=== PATIENT | female | born 1990 | race Two or more races ===

== ENCOUNTER 2021-12-13 10:19 | Outpatient (CLI) | payer OTHER | END 2021-12-13 10:26 | disposition home or self-care (01) | LOC: SONOGRAMA 10:19 | PROVIDERS: ATTEND Pathology Anatomic Pathology & Clinical Pathology | DX: E04.2 Nontoxic multinodular goiter (principal) ==

== ENCOUNTER → 2023-01-16 | Day surgery (SDC) | payer OTHER ==
[~2023-01-16] VITALS: Ht 157.5 cm; Wt 63.5 kg
== END | disposition home or self-care (01) ==
LOC: ER 01-15 14:35 → CIR.AMB 08:32 → O/R 08:32 → ER 08:32 → SEC-K 08:32 → EDSTATUS 13:45 → SEC-K 14:42 → O/R 14:42
PROVIDERS: ATTEND Emergency Medicine
DX: O02.1 Missed abortion (principal); O72.2 Delayed and secondary postpartum hemorrhage; Z20.822 Contact with and (suspected) exposure to COVID-19

== ENCOUNTER 2023-03-31 00:21 | Emergency (ER) | payer OTHER ==
[~2023-03-31] VITALS: Ht 154.9 cm; Wt 68.9 kg
[2023-03-31] MEDS ORDERED: PROMETRIUM200 MG PO (00:59)
[2023-03-31] MEDS ORDERED: LEVO-T25 MCG PO (00:59)
[2023-03-31] MEDS ORDERED: PRENATA CHEWAB1 EACH PO (01:00)
== END 2023-03-31 05:30 | disposition home or self-care (01) ==
LOC: ER 00:21
DX: O26.891 Other specified pregnancy related conditions, first trimester (principal); Z3A.08 8 weeks gestation of pregnancy; R10.2 Pelvic and perineal pain

== ENCOUNTER 2023-04-20 08:20 | Outpatient (CLI) | payer OTHER ==
[~2023-04-20 08:20] MED LIST: LEVO-T25 MCG PO; PRENATA CHEWAB1 EACH PO; PROMETRIUM200 MG PO
== END 2023-04-20 10:00 | disposition home or self-care (01) ==
LOC: PRENATAL 08:20
PROVIDERS: ATTEND Obstetrics & Gynecology Maternal & Fetal Medicine
DX: O36.80X0 Pregnancy with inconclusive fetal viability, not applicable or unspecified (principal); O99.280 Endocrine, nutritional and metabolic diseases complicating pregnancy, unspecified trimester; O28.5 Abnormal chromosomal and genetic finding on antenatal screening of mother; Z3A.11 11 weeks gestation of pregnancy

== ENCOUNTER 2023-06-06 00:59 | Inpatient (IN) | payer OTHER ==
[~2023-06-06] VITALS: Ht 154.9 cm; Wt 73.5 kg
--- NOTE | 2023-06-06 01:15 | NUR ---
PACIENTE EMBARAZADA DE 17 SEMANAS, REFIERE TENER CONTRACCIONES INTERMITENTES Y DOLOR PELVICO DESDE EL JUEVES. SE MONITOREAN VS Y SE UBICA EN ANDERSON #[id number]. *PACIENTE DE DR. MEAD*
--- NOTE | 2023-06-06 02:24 | NUR ---
PACIENTE EVALUADA POR DR. CAMPA QUIEN ORDENA TRATAMIENTO, BOB MTZ EDUCA ACERCA DEL MISMO Y REFIERE ENTENDER. SE CANALIZA Y COLECTAN MUESTRAS DE LABORATORIO MEDIANTE MEDIDAS ASEPTICAS. SE NOTIFICA SONOGRAMA A PERSONAL DE TURNO.
--- NOTE | 2023-06-06 02:25 | NUR ---
SE NOTIFICA A LAS 2:25AM A [facility].
--- NOTE | 2023-06-06 05:14 | NUR ---
LE REALIZAN ESTUDIO DE SONOGRAFIA ORDENADO POR .
--- NOTE | 2023-06-06 07:08 | NUR ---
SE RECIBE PTE ALERTA Y ORIENTADA X 3 EN ANDERSON CON RESPUESTA A ESTIMULOS. PATRON RESPIRATORIO ADECUADO ESPONTANEO.PTE CON R/L/1000ML BAJANDO A 120ML/HR PATRICE ORDEN MEDICA TOLERANDO TRATAMIENTO AL MOMENTO. AREA DE CANALIZACION MISTY DE EDEMA O ERITEMA CON BUEN TUGOR. SE OBSERVA POR CAMBIOS. EN ESPERA DE REEVALUACION MEDICA.
== END 2023-06-10 11:29 | disposition home or self-care (01) | DRG 770 ==
LOC: ER 00:59 → OB/GYN 07:37 → SEC-K 07:37 → OB/GYN 08:10
PROVIDERS: ADMIT Specialist; ATTEND Specialist
PROC: 4A1HXCZ Monitoring of Products of Conception, Cardiac Rate, External Approach (ICD-10-PCS; 2023-06-06)
PROC: BY4CZZZ Ultrasonography of Second Trimester, Single Fetus (ICD-10-PCS; 2023-06-06)
PROC: BU4CZZZ Ultrasonography of Uterus and Ovaries (ICD-10-PCS; 2023-06-06)
PROC: 3E033VJ Introduction of Other Hormone into Peripheral Vein, Percutaneous Approach (ICD-10-PCS; 2023-06-09)
PROC: 3E0DXGC Introduction of Other Therapeutic Substance into Mouth and Pharynx, External Approach (ICD-10-PCS; 2023-06-09)
PROC: 3E0P7VZ Introduction of Hormone into Female Reproductive, Via Natural or Artificial Opening (ICD-10-PCS; 2023-06-09)
PROC: 10D17ZZ Extraction of Products of Conception, Retained, Via Natural or Artificial Opening (ICD-10-PCS; principal; 2023-06-09 16:30)
DX: O03.39 Incomplete spontaneous abortion with other complications (principal); O26.872 Cervical shortening, second trimester; O26.842 Uterine size-date discrepancy, second trimester; O99.284 Endocrine, nutritional and metabolic diseases complicating childbirth; E03.8 Other specified hypothyroidism; O26.892 Other specified pregnancy related conditions, second trimester; Z3A.17 17 weeks gestation of pregnancy; Z20.822 Contact with and (suspected) exposure to COVID-19; R10.2 Pelvic and perineal pain

== ENCOUNTER 2023-07-25 08:29 | Outpatient (CLI) | payer OTHER | END 2023-07-25 08:30 | disposition home or self-care (01) | LOC: PRENATAL 08:29 | PROVIDERS: ATTEND Obstetrics & Gynecology Maternal & Fetal Medicine | DX: Z76.1 Encounter for health supervision and care of foundling (principal) ==

== ENCOUNTER 2023-11-02 11:35 | Emergency (ER) | payer OTHER ==
[~2023-11-02] VITALS: Ht 154.9 cm; Wt 76.2 kg
[2023-11-02] MEDS ORDERED: PROGESTERONE200 MG PO (11:43)
[2023-11-02] MEDS ORDERED: SYNTHROID50 MCG PO (11:43)
[2023-11-02 12:58] LABS: HEMATOCRIT 41.9 % (36.0-45.00); HEMOGLOBIN 14.3 g/dL (12.0-15.00); MEAN CELL VOLUME 88.8 fL (80.00-100.00); MEAN CORPUSCULAR HEMOGLOBIN 30.3 pg (27.00-32.0); MEAN CORPUSCULAR HGB CONC 34.1 g/dl (32.0-36.0); PLATELET COUNT 288 K/uL (150-450); RED BLOOD COUNT 4.72 M/uL (4.00-6.00); RED CELL DISTRIBUTION WIDTH 13.1 % (11.5-14.5)
[2023-11-03] MEDS ORDERED: PRENATA CHEWAB1 EACH PO (12:21)
== END 2023-11-02 14:48 | disposition home or self-care (01) ==
LOC: ER 11:36
PROVIDERS: Emergency Medicine
DX: O20.8 Other hemorrhage in early pregnancy (principal); Z3A.01 Less than 8 weeks gestation of pregnancy; E03.8 Other specified hypothyroidism

== ENCOUNTER 2023-11-03 11:26 | Emergency (ER) | payer OTHER ==
[~2023-11-03] VITALS: Ht 154.9 cm; Wt 76.2 kg
[~2023-11-03 11:26] MED LIST changes: +PROGESTERONE200 MG PO; +SYNTHROID50 MCG PO
[2023-11-03] MEDS ORDERED: PRENATA CHEWAB1 EACH PO (12:21)
[2023-11-03 13:29] LABS: PH,URINE 5.5 (5.0-8.0); URINE APPEARANCE Clear; URINE BILIRRUBIN Negative (NEGATIVE); URINE BLOOD Large; URINE COLOR Yellow; URINE GLUCOSE Negative (NEGATIVE); URINE LEUKOCYTE Negative; URINE NITRATE Negative; URINE PROTEIN Negative (NEGATIVE); URINE UROBILINOGEN 0.2 E.U./dl
[2023-11-03 13:32] LABS: URINE BACTERIA 134.8 uL (0.0-1933); URINE EPITHELIAL CELLS 5.7 uL (0.0-38.8); URINE RBC 957.7 uL (0.0-20.8); URINE WBC 9.5 uL (0.0-23.2)
[2023-11-03 13:37] LABS: HEMATOCRIT 41.4 % (36.0-45.00); MEAN CELL VOLUME 89.8 fL (80.00-100.00); MEAN CORPUSCULAR HEMOGLOBIN 30.4 pg (27.00-32.0); MEAN CORPUSCULAR HGB CONC 33.8 g/dl (32.0-36.0); PLATELET COUNT 271 K/uL (150-450); RED BLOOD COUNT 4.61 M/uL (4.00-6.00); RED CELL DISTRIBUTION WIDTH 13.1 % (11.5-14.5)
== END 2023-11-04 13:44 | disposition home or self-care (01) ==
LOC: ER 11:28
PROVIDERS: Emergency Medicine
DX: O20.9 Hemorrhage in early pregnancy, unspecified (principal); Z3A.10 10 weeks gestation of pregnancy; E03.9 Hypothyroidism, unspecified

== ENCOUNTER 2023-12-08 05:15 | Day surgery (SDC) | payer OTHER ==
[2023-12-06 09:21] LABS: HEMATOCRIT 38.6 % (36.0-45.00); HEMOGLOBIN 13.1 g/dL (12.0-15.00); MEAN CELL VOLUME 90.4 fL (80.00-100.00); MEAN CORPUSCULAR HEMOGLOBIN 30.6 pg (27.00-32.0); MEAN CORPUSCULAR HGB CONC 33.9 g/dl (32.0-36.0); PLATELET COUNT 249 K/uL (150-450); RED BLOOD COUNT 4.26 M/uL (4.00-6.00); RED CELL DISTRIBUTION WIDTH 14.1 % (11.5-14.5)
[2023-12-06 09:42] LABS: INR 1.04; PROTHROMBIN TIME 10.9 SECONDS (9.0-11.5)
[2023-12-06 09:52] LABS: URINE APPEARANCE Clear; URINE BILIRRUBIN Negative (NEGATIVE); URINE BLOOD Negative; URINE COLOR Yellow; URINE GLUCOSE Negative (NEGATIVE); URINE LEUKOCYTE Small; URINE NITRATE Negative; URINE PROTEIN Negative (NEGATIVE); URINE UROBILINOGEN 0.2 E.U./dl
[2023-12-06 09:57] LABS: URINE EPITHELIAL CELLS 32.4 uL (0.0-38.8); URINE RBC 6.3 uL (0.0-20.8)
[~2023-12-08 05:15] MED LIST changes: +SYNTHROID88 MCG PO
[2023-12-08] MEDS ORDERED: CEFAZOLIN SODIUM 1,000 MG VIAL ONE (06:27)
[2023-12-08] MEDS ORDERED: POVIDONE-IODINE 118 ML BOTT TOP ONE ×2 (07:45→08:15)
[2023-12-08] MEDS ORDERED: CEFAZOLIN SODIUM 1,000 MG VIAL IV ONE (08:15)
== END 2023-12-08 14:10 | disposition home or self-care (01) ==
LOC: CIR.AMB 05:15
PROVIDERS: ATTEND Specialist
DX: O34.31 Maternal care for cervical incompetence, first trimester (principal); Z3A.10 10 weeks gestation of pregnancy

== ENCOUNTER 2023-12-21 11:06 | Outpatient (CLI) | payer OTHER | END 2023-12-21 11:07 | disposition home or self-care (01) | LOC: PRENATAL 11:06 | PROVIDERS: ATTEND Obstetrics & Gynecology Maternal & Fetal Medicine | DX: O36.80X0 Pregnancy with inconclusive fetal viability, not applicable or unspecified (principal); Z36.82 Encounter for antenatal screening for nuchal translucency; O34.30 Maternal care for cervical incompetence, unspecified trimester; Z3A.12 12 weeks gestation of pregnancy ==

== ENCOUNTER 2023-12-21 23:38 | Emergency (ER) | payer OTHER ==
[~2023-12-21] VITALS: Ht 154.9 cm; Wt 76.2 kg
[2023-12-22 01:29] LABS: HEMATOCRIT 36.7 % (36.0-45.00); HEMOGLOBIN 12.5 g/dL (12.0-15.00); MEAN CELL VOLUME 89.9 fL (80.00-100.00); MEAN CORPUSCULAR HEMOGLOBIN 30.5 pg (27.00-32.0); MEAN CORPUSCULAR HGB CONC 33.9 g/dl (32.0-36.0); PLATELET COUNT 216 K/uL (150-450); RED BLOOD COUNT 4.08 M/uL (4.00-6.00); RED CELL DISTRIBUTION WIDTH 14.4 % (11.5-14.5)
== END 2023-12-22 04:05 | disposition home or self-care (01) ==
LOC: ER 23:39
DX: O26.851 Spotting complicating pregnancy, first trimester (principal); Z3A.12 12 weeks gestation of pregnancy

== ENCOUNTER 2023-12-28 10:49 | Emergency (ER) | payer OTHER ==
[~2023-12-28] VITALS: Ht 154.9 cm; Wt 76.2 kg
[2023-12-28 12:30] LABS: HEMATOCRIT 38.1 % (36.0-45.00); HEMOGLOBIN 13.1 g/dL (12.0-15.00); MEAN CELL VOLUME 90.3 fL (80.00-100.00); MEAN CORPUSCULAR HEMOGLOBIN 30.9 pg (27.00-32.0); MEAN CORPUSCULAR HGB CONC 34.3 g/dl (32.0-36.0); PLATELET COUNT 222 K/uL (150-450); RED BLOOD COUNT 4.22 M/uL (4.00-6.00); RED CELL DISTRIBUTION WIDTH 14.5 % (11.5-14.5)
[2023-12-28 14:17] LABS: URINE APPEARANCE Clear; URINE BILIRRUBIN Negative (NEGATIVE); URINE BLOOD Negative; URINE COLOR Yellow; URINE GLUCOSE Negative (NEGATIVE); URINE LEUKOCYTE Trace; URINE NITRATE Negative; URINE PROTEIN Negative (NEGATIVE); URINE UROBILINOGEN 0.2 E.U./dl
[2023-12-28 14:20] LABS: URINE BACTERIA 357.7 uL (0.0-1933); URINE EPITHELIAL CELLS 20.2 uL (0.0-38.8); URINE WBC 14.6 uL (0.0-23.2)
== END 2023-12-28 14:39 | disposition home or self-care (01) ==
LOC: ER 10:50
PROVIDERS: Emergency Medicine
DX: O26.891 Other specified pregnancy related conditions, first trimester (principal); O34.31 Maternal care for cervical incompetence, first trimester; Z3A.13 13 weeks gestation of pregnancy

== ENCOUNTER 2024-01-03 10:43 | Emergency (ER) | payer OTHER ==
[~2024-01-03] VITALS: Ht 154.9 cm; Wt 76.2 kg
[2024-01-03] MEDS ORDERED: ACETAMINOPHEN 500 MG GEL..CAP PO ONE (11:45)
[2024-01-03 12:01] LABS: HEMATOCRIT 36.9 % (36.0-45.00); MEAN CELL VOLUME 91.3 fL (80.00-100.00); MEAN CORPUSCULAR HEMOGLOBIN 32.1 pg (27.00-32.0); MEAN CORPUSCULAR HGB CONC 35.2 g/dl (32.0-36.0); PLATELET COUNT 220 K/uL (150-450); RED BLOOD COUNT 4.03 M/uL (4.00-6.00); RED CELL DISTRIBUTION WIDTH 13.8 % (11.5-14.5)
[2024-01-03 13:08] LABS: PH,URINE 5.5 (5.0-8.0); URINE APPEARANCE Clear; URINE BILIRRUBIN Negative (NEGATIVE); URINE BLOOD Trace; URINE COLOR Yellow; URINE GLUCOSE Negative (NEGATIVE); URINE LEUKOCYTE Small; URINE NITRATE Negative; URINE PROTEIN Negative (NEGATIVE)
[2024-01-03 13:12] LABS: URINE BACTERIA 372.9 uL (0.0-1933); URINE EPITHELIAL CELLS 81.6 uL (0.0-38.8); URINE WBC 56.2 uL (0.0-23.2)
[2024-01-03] MEDS ORDERED: NITROFURANTOIN100 MG PO (14:08)
== END 2024-01-03 14:34 | disposition home or self-care (01) ==
LOC: ER 10:44
PROVIDERS: General Practice
DX: O23.32 Infections of other parts of urinary tract in pregnancy, second trimester (principal); Z3A.14 14 weeks gestation of pregnancy; N39.0 Urinary tract infection, site not specified

== ENCOUNTER → 2024-04-09 12:48 | Outpatient (CLI) | payer OTHER ==
[~2024-04-09 12:48] MED LIST changes: +NITROFURANTOIN100 MG PO
== END | disposition home or self-care (01) ==
LOC: PRENATAL 12:48
PROVIDERS: ATTEND Obstetrics & Gynecology Maternal & Fetal Medicine
DX: O26.843 Uterine size-date discrepancy, third trimester (principal); O34.33 Maternal care for cervical incompetence, third trimester; O99.283 Endocrine, nutritional and metabolic diseases complicating pregnancy, third trimester; Z3A.28 28 weeks gestation of pregnancy

== ENCOUNTER 2024-04-17 11:14 | Outpatient (CLI) | payer OTHER | END 2024-04-17 11:24 | disposition home or self-care (01) | LOC: PRENATAL 11:14 | PROVIDERS: ATTEND Obstetrics & Gynecology Maternal & Fetal Medicine | DX: O36.8130 Decreased fetal movements, third trimester, not applicable or unspecified (principal); O36.5930 Maternal care for other known or suspected poor fetal growth, third trimester, not applicable or unspecified; Z3A.29 29 weeks gestation of pregnancy; O34.33 Maternal care for cervical incompetence, third trimester; O99.283 Endocrine, nutritional and metabolic diseases complicating pregnancy, third trimester ==

== ENCOUNTER 2024-04-23 10:04 | Outpatient (CLI) | payer OTHER | END 2024-04-23 10:05 | disposition home or self-care (01) | LOC: PRENATAL 10:04 | PROVIDERS: ATTEND Obstetrics & Gynecology Maternal & Fetal Medicine | DX: O36.8130 Decreased fetal movements, third trimester, not applicable or unspecified (principal); O36.5930 Maternal care for other known or suspected poor fetal growth, third trimester, not applicable or unspecified; Z3A.30 30 weeks gestation of pregnancy; O24.419 Gestational diabetes mellitus in pregnancy, unspecified control; O34.33 Maternal care for cervical incompetence, third trimester; O99.283 Endocrine, nutritional and metabolic diseases complicating pregnancy, third trimester ==

== ENCOUNTER 2024-05-01 10:06 | Outpatient (CLI) | payer OTHER | END 2024-05-01 10:07 | disposition home or self-care (01) | LOC: PRENATAL 10:06 | PROVIDERS: ATTEND Obstetrics & Gynecology Maternal & Fetal Medicine | DX: O26.843 Uterine size-date discrepancy, third trimester (principal); O36.8130 Decreased fetal movements, third trimester, not applicable or unspecified; O36.5930 Maternal care for other known or suspected poor fetal growth, third trimester, not applicable or unspecified; Z3A.31 31 weeks gestation of pregnancy; O34.33 Maternal care for cervical incompetence, third trimester; O99.283 Endocrine, nutritional and metabolic diseases complicating pregnancy, third trimester ==

== ENCOUNTER 2024-05-08 08:51 | Outpatient (CLI) | payer OTHER ==
[2024-05-14] MEDS ORDERED: CEFUROXIME500 MG PO (14:47)
== END 2024-05-08 08:53 | disposition home or self-care (01) ==
LOC: PRENATAL 08:51
PROVIDERS: ATTEND Obstetrics & Gynecology Maternal & Fetal Medicine
DX: O36.8130 Decreased fetal movements, third trimester, not applicable or unspecified (principal); O36.5930 Maternal care for other known or suspected poor fetal growth, third trimester, not applicable or unspecified; O34.33 Maternal care for cervical incompetence, third trimester; O99.283 Endocrine, nutritional and metabolic diseases complicating pregnancy, third trimester; Z3A.32 32 weeks gestation of pregnancy

== ENCOUNTER 2024-05-13 16:17 | Outpatient (CLI) | payer OTHER ==
[2024-05-13] MEDS ORDERED: BETAMETHASONE ACETATE,SOD PHOS 30 MG/5 ML ML IM ONE (16:45)
[2024-05-13] MEDS ORDERED: RINGERS SOLUTION,LACTATED 1,000 ML IV SCH (16:45)
[2024-05-13] MEDS ORDERED: CEFAZOLIN SODIUM 1,000 MG VIAL IV ONE (16:45)
[2024-05-13] MEDS ORDERED: CEFAZOLIN SODIUM 1,000 MG VIAL ONE (16:50)
[2024-05-13] MEDS ORDERED: NIFEDIPINE 30 MG TAB.SA.OSM PO SCH ×2 (17:45→18:58)
[2024-05-13 17:51] LABS: URINE APPEARANCE Clear; URINE BILIRRUBIN Negative (NEGATIVE); URINE BLOOD Large; URINE COLOR Yellow; URINE KETONE Negative (NEGATIVE); URINE LEUKOCYTE Negative; URINE NITRATE Negative; URINE PROTEIN Trace (NEGATIVE); URINE UROBILINOGEN 0.2 E.U./dl
[2024-05-13 17:55] LABS: URINE BACTERIA 667.7 uL (0.0-1933); URINE EPITHELIAL CELLS 35.7 uL (0.0-38.8); URINE RBC 447.5 uL (0.0-20.8); URINE WBC 24.2 uL (0.0-23.2)
[2024-05-13 17:57] LABS: HEMATOCRIT 36.6 % (36.0-45.00); HEMOGLOBIN 12.7 g/dL (12.0-15.00); MEAN CELL VOLUME 94.1 fL (80.00-100.00); MEAN CORPUSCULAR HEMOGLOBIN 32.7 pg (27.00-32.0); MEAN CORPUSCULAR HGB CONC 34.8 g/dl (32.0-36.0); PLATELET COUNT 229 K/uL (150-450); RED BLOOD COUNT 3.89 M/uL (4.00-6.00); RED CELL DISTRIBUTION WIDTH 13.2 % (11.5-14.5)
[2024-05-13 18:09] LABS: URINE CAST 0.15 uL (0.0-1.40); URINE CRYSTALS MODERATE /HPF; URINE GLUCOSE 250 MG/DL (NEGATIVE)
[2024-05-13 18:13] LABS: INR 0.94; PROTHROMBIN TIME 9.9 SECONDS (9.0-11.5)
[2024-05-13 18:20] LABS: ALBUMIN 2.8 gm/dL (3.4-5.0); BILIRUBIN TOTAL 0.23 mg/dL (0.3-1.2); CALCIUM 8.9 mg/dL (8.5-10.1); CREATININE SERUM 0.55 mg/dL (0.55-1.02); GFR 128.09; GLOBULINA 3.6 G/DL (2.4-3.5); POTASSIUM 3.85 mEq/L (3.5-5.1); TOTAL PROTEIN 6.4 gm/dL (6.4-8.2)
[2024-05-13] MEDS ORDERED: CEFAZOLIN SODIUM 1,000 MG VIAL IV SCH (20:00)
[2024-05-13] MEDS ORDERED: ** NF ** (PROGESTERONA 200 MG) PO SCH (20:30)
[2024-05-13] MEDS ORDERED: ** NF ** (PROGESTERONA 200 MG) VAG SCH (22:30)
[2024-05-14] MEDS ORDERED: CEFAZOLIN SODIUM 1,000 MG VIAL IV SCH
[2024-05-14] MEDS ORDERED: NIFEDIPINE 30 MG TAB.SA.OSM PO SCH (09:00)
[2024-05-14] MEDS ORDERED: LEVOTHYROXINE SODIUM 100 MCG TABLET PO SCH (09:00)
[2024-05-14] MEDS ORDERED: CEFUROXIME500 MG PO ×2 (14:47)
[2024-05-14] MEDS ORDERED: BETAMETHASONE ACETATE,SOD PHOS 30 MG/5 ML ML IM ONE (16:45)
[2024-05-14] MEDS ORDERED: PROGESTERONE 200 MG VAG SCH (22:30)
[2024-05-14] MEDS ORDERED: PROGESTERONE 200 MG PO SCH (22:30)
== END 2024-05-14 15:58 | disposition home or self-care (01) ==
LOC: OBS/DEL 16:17
PROVIDERS: ATTEND Specialist
DX: O23.43 Unspecified infection of urinary tract in pregnancy, third trimester (principal); N39.0 Urinary tract infection, site not specified; Z3A.33 33 weeks gestation of pregnancy

== ENCOUNTER 2024-05-21 09:51 | Outpatient (CLI) | payer OTHER ==
[~2024-05-21 09:51] MED LIST changes: +CEFUROXIME500 MG PO
== END 2024-05-21 09:52 | disposition home or self-care (01) ==
LOC: PRENATAL 09:51
PROVIDERS: ATTEND Obstetrics & Gynecology Maternal & Fetal Medicine
DX: O36.8130 Decreased fetal movements, third trimester, not applicable or unspecified (principal); O34.33 Maternal care for cervical incompetence, third trimester; O99.283 Endocrine, nutritional and metabolic diseases complicating pregnancy, third trimester; Z3A.34 34 weeks gestation of pregnancy

== ENCOUNTER → 2024-05-24 08:18 | Outpatient (CLI) | payer OTHER | END | disposition home or self-care (01) | LOC: PRENATAL 08:18 | PROVIDERS: ATTEND Obstetrics & Gynecology Maternal & Fetal Medicine | DX: O36.8130 Decreased fetal movements, third trimester, not applicable or unspecified (principal); O36.5930 Maternal care for other known or suspected poor fetal growth, third trimester, not applicable or unspecified; O34.33 Maternal care for cervical incompetence, third trimester; O99.283 Endocrine, nutritional and metabolic diseases complicating pregnancy, third trimester; Z3A.34 34 weeks gestation of pregnancy ==

== ENCOUNTER 2024-05-28 09:06 | Outpatient (CLI) | payer OTHER | END 2024-05-28 09:19 | disposition home or self-care (01) | LOC: LAB 09:06 | PROVIDERS: ATTEND Specialist | DX: Z34.00 Encounter for supervision of normal first pregnancy, unspecified trimester (principal) ==

== ENCOUNTER 2024-05-28 09:37 | Inpatient (IN) | payer OTHER ==
[~2024-05-28] VITALS: Ht 152.4 cm; Wt 1.8 kg
[2024-05-28 10:17] LABS: HEMATOCRIT 36.2 % (36.0-45.00); HEMOGLOBIN 12.5 g/dL (12.0-15.00); MEAN CELL VOLUME 92.9 fL (80.00-100.00); MEAN CORPUSCULAR HEMOGLOBIN 32.1 pg (27.00-32.0); MEAN CORPUSCULAR HGB CONC 34.5 g/dl (32.0-36.0); PLATELET COUNT 221 K/uL (150-450); RED CELL DISTRIBUTION WIDTH 13.4 % (11.5-14.5)
[2024-05-28 10:21] LABS: URINE APPEARANCE Cloudy; URINE BILIRRUBIN Negative (NEGATIVE); URINE BLOOD Large; URINE COLOR Dark Yellow; URINE GLUCOSE Negative (NEGATIVE); URINE KETONE 15 (NEGATIVE); URINE LEUKOCYTE Small; URINE NITRATE Negative; URINE PROTEIN 30 (NEGATIVE)
[2024-05-28 10:26] LABS: URINE BACTERIA 563.1 uL (0.0-1933); URINE EPITHELIAL CELLS 33.2 uL (0.0-38.8); URINE WBC 45.6 uL (0.0-23.2)
[2024-05-28 10:37] LABS: INR 0.97; PARTIAL THROMBOPLASTIN TIME 27.6 SECONDS (22.0-34.0); PROTHROMBIN TIME 10.6 SECONDS (9.0-11.5)
[2024-05-28 11:15] LABS: ALBUMIN 2.8 gm/dL (3.4-5.0); BILIRUBIN TOTAL 0.35 mg/dL (0.3-1.2); CALCIUM 9.7 mg/dL (8.5-10.1); CREATININE SERUM 0.59 mg/dL (0.55-1.02); GFR 118.12; GLOBULINA 3.7 G/DL (2.4-3.5); POTASSIUM 3.83 mEq/L (3.5-5.1); TOTAL PROTEIN 6.5 gm/dL (6.4-8.2)
[2024-05-31 05:33] VITALS: BP 121/80
[2024-05-31 06:01] VITALS: BP 121/80
[2024-05-31] MEDS ORDERED: CEFAZOLIN SODIUM 1,000 MG VIAL IV SCH ×2 (06:45→14:00)
[2024-05-31] MEDS ORDERED: RINGERS SOLUTION,LACTATED 1,000 ML IV SCH ×2 (06:45→10:00)
[2024-05-31] MEDS ORDERED: OXYTOCIN 10 UNITS/ML VIAL ONE ×2 (07:01→07:22)
[2024-05-31] MEDS ORDERED: ERYTHROMYCIN BASE 1 GM TUBE OP ONE ×2 (07:01→07:22)
[2024-05-31 07:30] VITALS: BP 123/71
[2024-05-31] MEDS ORDERED: MEPERIDINE HCL/PF 50 MG/ML VIAL IM PRN (10:00)
[2024-05-31] MEDS ORDERED: PROMETHAZINE HCL 50 MG/ML AMPUL IM PRN (10:00)
[2024-05-31] MEDS ORDERED: MORPHINE SULFATE 4 MG/ML VIAL IV ONE ×3 (10:50→12:35)
[2024-05-31] MEDS ORDERED: CEFAZOLIN SODIUM 1,000 MG VIAL ONE (14:34)
[2024-05-31 16:33] VITALS: BP 125/77
[2024-05-31 20:00] VITALS: BP 112/79
[2024-06-01 01:11] VITALS: BP 130/86
[2024-06-01 02:29] LABS: HEMATOCRIT 36.3 % (36.0-45.00); HEMOGLOBIN 12.2 g/dL (12.0-15.00); MEAN CELL VOLUME 93.7 fL (80.00-100.00); MEAN CORPUSCULAR HEMOGLOBIN 31.5 pg (27.00-32.0); MEAN CORPUSCULAR HGB CONC 33.6 g/dl (32.0-36.0); PLATELET COUNT 191 K/uL (150-450); RED BLOOD COUNT 3.88 M/uL (4.00-6.00); RED CELL DISTRIBUTION WIDTH 13.3 % (11.5-14.5)
[2024-06-01 09:00] VITALS: BP 121/81
[2024-06-01] MEDS ORDERED: OxyCODONE HCL/APAP UD (PERCOCET) PO PRN (09:00)
[2024-06-01 16:00] VITALS: BP 119/82; BP 126/82
[2024-06-01] MEDS ORDERED: BISACODYL 10 MG/SUPP.RECT SUPP.RECT RECTAL STA (20:08)
[2024-06-02] VITALS: BP 127/84
[2024-06-02 08:18] VITALS: BP 127/85
[2024-06-02 16:00] VITALS: BP 122/64
[2024-06-03] VITALS: BP 109/73
[2024-06-03 09:04] VITALS: BP 118/81
== END 2024-06-03 18:34 | disposition home or self-care (01) | DRG 786 ==
LOC: LDR 05-31 05:51 → O/R 05-31 08:17 → OB/GYN 05-31 08:45
PROVIDERS: ADMIT Specialist; ATTEND Specialist
PROC: 0UCC7ZZ Extirpation of Matter from Cervix, Via Natural or Artificial Opening (ICD-10-PCS; 2024-05-31)
PROC: 4A1HXCZ Monitoring of Products of Conception, Cardiac Rate, External Approach (ICD-10-PCS; 2024-05-31)
PROC: 10D00Z1 Extraction of Products of Conception, Low, Open Approach (ICD-10-PCS; principal; 2024-05-31 07:00)
DX: O41.03X0 Oligohydramnios, third trimester, not applicable or unspecified (principal); O34.33 Maternal care for cervical incompetence, third trimester; O60.14X0 Preterm labor third trimester with preterm delivery third trimester, not applicable or unspecified; O99.284 Endocrine, nutritional and metabolic diseases complicating childbirth; E03.9 Hypothyroidism, unspecified; O24.420 Gestational diabetes mellitus in childbirth, diet controlled; O36.5930 Maternal care for other known or suspected poor fetal growth, third trimester, not applicable or unspecified; Z3A.35 35 weeks gestation of pregnancy; Z37.0 Single live birth; Z20.822 Contact with and (suspected) exposure to COVID-19